=== PATIENT | male | born 1995 | race Hispanic/Latino ===

== ENCOUNTER 2018-09-21 04:40 | Emergency (ER) | payer MEDICAID, OTHER | END 2018-09-21 05:02 | LOC: EDH 04:40 | DX: Z02.83 Encounter for blood-alcohol and blood-drug test (principal); F41.9 Anxiety disorder, unspecified; F32.9 Major depressive disorder, single episode, unspecified; Z72.0 Tobacco use ==

== ENCOUNTER 2021-12-29 18:43 | Emergency (ER) | payer OTHER ==
[~2021-12-29] VITALS: Ht 175.3 cm; Wt 86.2 kg
[2021-12-29] MEDS ORDERED: CLINDAMYCIN 150 MG CAP PO ONE (19:00)
[2021-12-29] MEDS ORDERED: ACETAMINOPHEN 500 MG TABLET PO ONE (19:00)
[2021-12-29 20:01] LABS: BASOPHILS % (AUTO) 0.5 % (0.0-5.0); EOSINOPHILS % (AUTO) 2.3 % (0.0-8.0); HEMATOCRIT 35.1 % (42-54); LYMPHOCYTES % (AUTO) 22.4 % (21.0-51.0); MEAN CORPUSCULAR HEMOGLOBIN 24.5 pg (27.0-33.0); MEAN CORPUSCULAR HGB CONC 31.6 g/dL (32.0-36.0); MEAN CORPUSCULAR VOLUME 77.5 fL (79-99); MONOCYTES % (AUTO) 5.3 % (3.0-13.0); NEUTROPHILS % (AUTO) 69.2 % (40.0-77.0); PLATELET COUNT (AUTO) 368 K/uL (130-400); RED BLOOD CELL COUNT(AUTO) 4.53 MIL/uL (4.50-6.20); RED CELL DISTRIBUTION WIDTH 16.1 % (11.0-15.5); WHITE BLOOD COUNT (AUTO) 10.3 K/uL (4.8-10.8)
[2021-12-29 20:10] LABS: CREATININE 0.8 mg/dL (0.5-1.5); POTASSIUM 3.9 mmol/L (3.5-5.1)
[2021-12-29 20:15] LABS: ALBUMIN 3.3 g/dL (3.5-5.0); TOTAL PROTEIN, SERUM 7.5 g/dL (6.0-8.3)
[2021-12-29] MEDS ORDERED: ACET-2247 PO (20:29)
[2021-12-29] MEDS ORDERED: CLIN-141 PO (20:29)
[2021-12-29 20:36] VITALS: BP 128/72
== END 2021-12-29 20:37 | disposition home or self-care (01) ==
LOC: EDH 18:43
DX: S81.802A Unspecified open wound, left lower leg, initial encounter (principal); L03.116 Cellulitis of left lower limb; X58.XXXA Exposure to other specified factors, initial encounter; Y93.89 Activity, other specified; Y92.89 Other specified places as the place of occurrence of the external cause; Y99.8 Other external cause status
CPT/HCPCS: 36415; 73590; 80053; 85025; 86140

== ENCOUNTER 2022-01-07 00:23 | Emergency (ER) | payer OTHER ==
[~2022-01-07 00:23] MED LIST: ACET-2247 PO; CLIN-141 PO
[2022-01-07 01:04] VITALS: BP 109/55
[2022-01-07 01:08] LABS: BASOPHILS % (AUTO) 0.6 % (0.0-5.0); EOSINOPHILS % (AUTO) 0.7 % (0.0-8.0); HEMATOCRIT 34.4 % (42-54); LYMPHOCYTES % (AUTO) 14.8 % (21.0-51.0); MEAN CORPUSCULAR HEMOGLOBIN 24.7 pg (27.0-33.0); MEAN CORPUSCULAR HGB CONC 32.3 g/dL (32.0-36.0); MEAN CORPUSCULAR VOLUME 76.6 fL (79-99); MONOCYTES % (AUTO) 9.8 % (3.0-13.0); NEUTROPHILS % (AUTO) 73.7 % (40.0-77.0); PLATELET COUNT (AUTO) 324 K/uL (130-400); RED BLOOD CELL COUNT(AUTO) 4.49 MIL/uL (4.50-6.20); RED CELL DISTRIBUTION WIDTH 16.7 % (11.0-15.5); WHITE BLOOD COUNT (AUTO) 13.5 K/uL (4.8-10.8)
[2022-01-07 01:14] LABS: CREATININE 1.1 mg/dL (0.5-1.5); POTASSIUM 3.3 mmol/L (3.5-5.1)
[2022-01-07 01:19] LABS: ALBUMIN 3.7 g/dL (3.5-5.0); TOTAL PROTEIN, SERUM 8.3 g/dL (6.0-8.3)
[2022-01-07 01:40] LABS: APPEARANCE,URINE CLEAR (CLEAR); BILIRUBIN,URINE NEGATIVE (NEGATIVE); COLOR,URINE YELLOW (YELLOW); GLUCOSE, URINE (UA) NEGATIVE (NEGATIVE); KETONES,URINE NEGATIVE (NEGATIVE); LEUKOCYTE ESTERASE ,URINE NEGATIVE (NEGATIVE); NITRATE,URINE NEGATIVE (NEGATIVE); OCCULT BLOOD,URINE NEGATIVE (NEGATIVE); PROTEIN,URINE NEGATIVE (NEGATIVE); UROBILINOGEN,URINE 0.2 mg/dL (0.2-1.0)
[2022-01-07 01:44] LABS: AMPHET/METH SCREEN,URINE NEGATIVE (NEGATIVE); BARBITURATE SCREEN, URINE NEGATIVE (NEGATIVE); BENZODIAZEPINES SCREEN,URINE POSITIVE (NEGATIVE); CANNABINOID SCREEN,URINE POSITIVE (NEGATIVE); COCAINE SCREEN,URINE POSITIVE (NEGATIVE); PHENCYCLIDINE SCREEN,URINE NEGATIVE (NEGATIVE)
[2022-01-07] MEDS ORDERED: KETOROLAC 30MG VIAL (30MG/ML) ONE (01:54)
[2022-01-07] MEDS ORDERED: KETOROLAC 30MG VIAL (30MG/ML) IM ONE (02:00)
== END 2022-01-07 03:30 | disposition left against medical advice (07) ==
LOC: EDH 00:23
DX: M25.472 Effusion, left ankle (principal); Z79.1 Long term (current) use of non-steroidal anti-inflammatories (NSAID); Z88.0 Allergy status to penicillin
CPT/HCPCS: 99284; 80053; 80305; 85025; 85651; 86140; 36415; 73610; 96372; 84145; 81003; J1885

== ENCOUNTER → 2022-06-13 | Emergency (ER) | payer OTHER ==
[~2022-06-13] MED LIST changes: +NAPR-1180 PO
== END ==
LOC: EDH 10:58
DX: R06.02 Shortness of breath (principal); Z53.21 Procedure and treatment not carried out due to patient leaving prior to being seen by health care provider

== ENCOUNTER 2024-06-25 02:05 | Emergency (ER) | payer SELFPAY ==
[~2024-06-25] VITALS: Ht 177.8 cm; Wt 136.1 kg
[2024-06-25] MEDS: ketOROlac 30MG VIAL (30MG/ML) IM ONE (02:37)
--- NOTE | 2024-06-25 02:54 | ERN ---
General Chief Complaint: Knee Injury/Swelling Stated Complaint: L KNEE AND ANKLE PAIN S/P FALL Time Seen by MD: 02:11 History of Present Illness Initial Comments 29-year-old male came in for left knee pain after twisting his knee while he was walking. Patient was able to ambulate without any concerns. Patient otherwise has no concerns. Allergies: Coded Allergies: Penicillins (Unverified Allergy, Unknown, 01/07/22) Home Meds Active Scripts Naproxen (Naprosyn) 500 Mg Tablet, 500 MG PO BIDPC for 10 Days, #20 TAB 0 Refills Prov:RISHABH NAVARRETE MD 02/14/22 Acetaminophen (Tylenol) 325 Mg Tablet, 650 MG PO Q4H, #50 TAB Prov:JIM STACK 12/29/21 Clindamycin HCl (Clindamycin HCl) 300 Mg Capsule, 1 CAP PO QID for 10 Days, #40 CAP 0 Refills Prov:JIM STACK 12/29/21 Past Medical History Past Medical History: Other Medical History Other: HERNIATED DISK T-5 Past Surgical History: Other Surgical History Other: BILAT TRAUMA SX TO LOWER EXT 2020 Family History Family History: Negative Social History Social History: Negative ROS Dictation CONSTITUTIONAL: Negative except for HPI HEAD/FACE: Negative except for HPI EENT: Negative except for HPI RESPIRATORY: Negative except for HPI GASTROINTESTINAL/ABDOMINAL: Negative except for HPI GENITOURINARY: Negative except for HPI MUSCULOSKELETAL: Negative except for HPI INTEGUMENTARY: Negative except for HPI NEUROLOGICAL/PSYCH: Negative except for HPI HEMATOLOGIC/LYMPHATIC: Negative except for HPI All Systems Negative, Except as noted above. 13 point review of systems assessed and all negative except for above. Physical Exam Physical Exam Dictation Vital Signs reviewed General Appearance: Alert, oriented x 3, no acute distress, well developed, nourished. Head and Face: non-traumatic. Eyes: PERRL, pink conjunctivas, eyelid no trauma, anterior chamber with arcus senilis. Ears: Pinnas intact and no signs of trauma or erythema ear canals clear and no discharge TM no erythema Nose: No discharge, no bleeding. Oropharynx: Mouth normal, tongue pink, pharynx clear,no erythema, tonsils no exudates, no abscesses noted, mucous membrane moist Neck: Supple, non-tender, no thyromegaly, no masses, no JVD, no bruits Breast:Deferred Chest:No tenderness, no crepitus, no paradoxical movement, no retractions Lungs:Clear, well-ventilated, symmetric, no rales, no wheezing, no rhonchi, no stridor, good breath sounds bilaterally Heart: Regular rate, regular rhythm, no murmur, no gallops Vascular: no peripheral edema, Abdomen: Soft, positive bowel sounds, nondistended, no guarding, nontender, no rebound, no masses no hepatomegaly, no splenomegaly, no Jones's sign, no hernias. Rectal: Deferred Genital: Deferred Neurological: Normal speech, motor function intact, sensory function intact Musculoskeletal: Neck nontender, full range of motion, back nontender, full range of motion, Extremities: nontender, full range of motion Skin: Color pink, dry, no turgor, no rash, no lacerations, no abrasions, no contusions. Lymphatic: Deferred MDM MDM: Differential diagnosis: There are no social concerns with this patient. Prescription drug management Prescriptions will include: Medical management and examination interpretation discussions were had by me with other qualified healthcare professionals as indicated for the patient's care. ED Course Orders Procedure Category Date Status Time Knee 4+Vws Lt RAD 06/25/24 Taken 02:07 Ankle 2vws Lt RAD 06/25/24 Taken 02:07 Ketorolac PHA 06/25/24 Complete Tromethamine 30mg/Ml 02:30 Current Medications Medications (Trade) Dose Ordered Sig/Miriam Route PRN Reason Start Time Stop Time Status Last Admin Dose Admin Ketorolac Tromethamine (toRADol) 30 mg ONCE ONCE IM 06/25/24 02:30 06/25/24 02:32 DC 06/25/24 02:37 Vital Signs Date Time Temp Pulse Resp B/P (MAP) Pulse Ox O2 Delivery O2 Flow Rate FiO2 06/25/24 02:18 98.1 92 18 124/89 100 Room Air* 0 21 06/25/24 02:07 97.9 99 18 132/82 98 Room Air 0 DX & DISP Disposition: Discharge Departure Impression: Primary Impression: Knee sprain Condition: Stable Referrals: SELF,REFERRAL (PCP) LAURA JIMENEZ MD, USMAN I MD Jun 25, 2024 02:54
[2024-06-25 03:19] VITALS: BP 128/72; PULSE 92; RESP 18; TEMP 86; O2SAT 98
--- NOTE | 2024-06-25 10:30 | HMCIMG ---
KNEE 4+VWS LT REASON: S/P FALL. COMPARISON: None TECHNIQUE: 3 images of left knee were obtained. FINDINGS: Intramedullary apple is seen through the tibia. No acute displaced fracture or dislocation is seen. IMPRESSION: Findings as described above.
--- NOTE | 2024-06-25 10:30 | HMCIMG ---
ANKLE 2VWS LT HISTORY: Status post fall COMPARISON: None TECHNIQUE: 3 images of left ankle were obtained. FINDINGS: Orthopedic fixation screws are seen traversing the calcaneus. Intramedullary apple is seen traversing the tibia. There is no acute displaced fracture or dislocation. There is soft tissue swelling. Degenerative changes are seen. IMPRESSION: 1. Findings as described above.
== END 2024-06-25 03:42 | disposition home or self-care (01) ==
LOC: EDH 02:05
DX: S83.8X2A Sprain of other specified parts of left knee, initial encounter (principal); Z79.899 Other long term (current) drug therapy; Z88.0 Allergy status to penicillin; Z98.890 Other specified postprocedural states; X50.1XXA Overexertion from prolonged static or awkward postures, initial encounter; Y93.01 Activity, walking, marching and hiking; Y92.89 Other specified places as the place of occurrence of the external cause; Y99.8 Other external cause status
CPT/HCPCS: 99284; 73600; 73564; 96372; J1885